=== PATIENT | male | born 1985 | race Caucasian/White ===

== ENCOUNTER 2017-06-15 08:04 | Emergency (ER) | payer OTHER, MEDICAID ==
[2017-06-15] MEDS: SOD CHLORIDE 0.9% 1,000 ML IV (08:34)
[2017-06-15] MEDS: ONDANSETRON 4 MG INJ IV ×3 (08:34→12:46)
[2017-06-15] MEDS: HYDROmorphONE 1 MG/ML SYG IV ×2 (08:34→12:46)
[2017-06-15] MEDS: DIPHENHYDRAMINE 50 MG INJ IV ×2 (09:00→12:46)
[2017-06-15] MEDS: HYDROmorphONE 2 MG/ML SYG IV (11:22)
[2017-06-15 11:46] LABS: ADD MAN DIFF? NO
[2017-06-15 12:07] LABS: BASOPHILS % 0.1 % (0.0-2.0); EOSINOPHILS % 0.1 % (0.0-7.0); HEMATOCRIT 44.5 % (42.0-52.0); HEMOGLOBIN 14.8 g/dl (14.0-18.0); LYMPHOCYTES # 1.8 10^3/ul (0.8-2.9); LYMPHOCYTES % 12.9 % (15.0-51.0); MEAN CORPUSCULAR HEMOGLOBIN 29.4 pg (29.0-33.0); MEAN CORPUSCULAR HGB CONC 33.3 g/dl (32.0-37.0); MEAN CORPUSCULAR VOLUME 88.3 fl (82.0-101.0); MEAN PLATELET VOLUME 9.6 fl (7.4-10.4); MONOCYTE # 1.1 10^3/ul (0.3-0.9); MONOCYTES % 7.9 % (0.0-11.0); NEUTROPHILS % 78.4 % (39.0-77.0); PLATELET COUNT 327 10^3/UL (140-415); RED BLOOD COUNT 5.04 10^6/ul (4.70-6.10); RED CELL DISTRIBUTION WIDTH 13.3 % (11.5-14.5)
[2017-06-15 12:36] LABS: ALANINE AMINOTRANSFERASE 47 IU/L (13-69); ALBUMIN 5.2 g/dl (3.3-4.9); ALBUMIN/GLOBULIN RATIO 1.79; ALKALINE PHOSPHATASE 90 IU/L (42-121); AMYLASE 55 U/L (11-123); ANION GAP 19 (8-16); ASPARTATE AMINO TRANSFERASE 26 IU/L (15-46); BILIRUBIN,INDIRECT 0.3 mg/dl (0-1.1); BILIRUBIN,TOTAL 0.3 mg/dl (0.2-1.3); BLOOD UREA NITROGEN 18 mg/dl (7-20); CARBON DIOXIDE 27 mmol/L (21-31); CHLORIDE 103 mmol/L (97-110); LIPASE 36 U/L (23-300); POTASSIUM 4.1 mmol/L (3.5-5.1); SODIUM 145 mmol/L (135-144); TOTAL PROTEIN 8.1 g/dl (6.1-8.1)
[2017-06-15] MEDS: LIDOCAINE 2% VISC 15 ML CUP PO (12:46)
[2017-06-15 12:53] LABS: CALCIUM 9.7 mg/dl (8.4-10.2); CREATININE 0.99 mg/dl (0.61-1.24); GLUCOSE 96 mg/dl (70-220)
[2017-06-15] MEDS: ONDANSETRON (ODT) 4 MG TAB ODT (14:30)
== END 2017-06-15 14:42 | disposition home or self-care (01) ==
LOC: FTE 08:04
DX: K50.00 Crohn's disease of small intestine without complications (principal); Z85.3 Personal history of malignant neoplasm of breast; Z87.891 Personal history of nicotine dependence
CPT/HCPCS: 36415; 80053; 82150; 83690; 85025; 96374; 96375; 96376; 99284-25